=== PATIENT | female | born 1950 | race Caucasian/White ===

== ENCOUNTER 2018-05-12 11:57 | Emergency (ER) | payer OTHER ==
--- OUTSIDE RECORDS SUMMARY | 2018-05-12 12:00 | XMS REPORT | Clinical Summary ---
:1950 Author Organization [facility] Address [address] [place] [address] Care Team Providers Name Role Phone Pennie Raya CASEY SAW OPERATOR-C Primary Care Provider Allergies Active Allergy Reactions Severity Noted Date Comments Codeine 09/26/2016 Morphine 09/26/2016 Current Medications Prescription Sig. Disp. Refills Start Date End Date Status SYMBICORT 160-4.5 Inhale 2 3 08/15/2016 Active mcg/actuation inhaler puffs 2 (two) times a day. levothyroxine Take 100 mcg 09/13/2016 Active (SYNTHROID, LEVOXYL) by mouth 112 mcg tablet daily. fluticasone (FLONASE) 2 sprays by Active 50 mcg/actuation Each Nare nasal spray route daily. ALBUTEROL SULFATE Inhale. Active (PROAIR HFA INHL) DOCUSATE SODIUM Take by Active (COLACE ORAL) mouth. FEXOFENADINE HCL Take by mouth Active (MUCINEX ALLERGY as needed. ORAL) PLANT STANOL FLAKO Take by mouth Active (CHOLEST OFF ORAL) 2 (two) times a day. MAGNESIUM Take by Active OXIDE,ASPARTATE,CITR mouth. (TRIPLE MAGNESIUM COMPLEX ORAL) carica papaya (PAPAYA Take by Active ENZYME) tablet mouth. red yeast rice 600 mg Take by Active tablet mouth. propafenone (RYTHMOL) Take 1 tablet 270 tablet 3 01/02/2018 Active 225 MG (225 mg tabletIndications: total) by Atrial fibrillation, mouth 3 unspecified type (three) times a day. atenolol (TENORMIN) Take 1 tablet 90 tablet 3 05/07/2018 Active 50 MG (50 mg total) 9 tabletIndications: by mouth Atrial fibrillation, daily. unspecified type, Dizziness, Essential hypertension furosemide (LASIX) 40 Take 1 tablet 90 tablet 3 05/07/2018 Active mg tabletIndications: (40 mg total) Atrial fibrillation, by mouth unspecified type, daily. Dizziness, Essential hypertension losartan (COZAAR) 50 Take 1 tablet 90 tablet 3 05/07/2018 Active MG tabletIndications: (50 mg total) 9 Essential by mouth hypertension, Atrial daily. fibrillation, unspecified type, Dizziness XARELTO 10 mg Take 1 tablet 90 tablet 3 05/07/2018 Active tabletIndications: (10 mg total) Atrial fibrillation, by mouth unspecified type, daily. Dizziness, Essential hypertension amoxicillin-pot 09/12/2016 Discontinued clavulanate 8 (AUGMENTIN) 875-125 mg per tablet erythromycin 0.5% 08/29/2016 Discontinued (ILOTYCIN) 5 mg/gram 8 (0.5 %) ophthalmic ointment fluconazole 09/13/2016 Discontinued (DIFLUCAN) 150 MG 8 tablet diphenhydrAMINE Take 25 mg by Discontinued (BENADRYL) 25 mg mouth nightly 8 tablet as needed for sleep. propafenone (RYTHMOL) Take 1 tablet 270 tablet 3 02/13/2017 Discontinued 225 MG by mouth 3 7 tabletIndications: times daily Cardiomyopathy, Atrial fibrillation, unspecified type atenolol (TENORMIN) Take 1 tablet 90 tablet 3 03/26/2017 Discontinued 25 MG (25 mg total) 7 tabletIndications: by mouth Cardiomyopathy, daily. Atrial fibrillation, unspecified type losartan (COZAAR) 50 Take 1 tablet 90 tablet 3 04/03/2017 Discontinued MG tabletIndications: (50 mg total) 8 Essential by mouth hypertension, Atrial daily. fibrillation, unspecified type, Dizziness, Cardiomyopathy atenolol (TENORMIN) Take 1 tablet 90 tablet 3 04/03/2017 Discontinued 50 MG (50 mg total) 7 tabletIndications: by mouth Atrial fibrillation, daily. unspecified type, Dizziness, Essential hypertension, Cardiomyopathy furosemide (LASIX) 40 Take 1 tablet 90 tablet 3 04/03/2017 Discontinued mg tabletIndications: (40 mg total) 8 Cardiomyopathy, by mouth Atrial fibrillation, daily. unspecified type, Dizziness, Essential hypertension XARELTO 10 mg Take 1 tablet 90 tablet 3 04/03/2017 Discontinued tabletIndications: (10 mg total) 8 Cardiomyopathy, by mouth Atrial fibrillation, daily. unspecified type, Dizziness, Essential hypertension atenolol (TENORMIN) Take 1 tablet 90 tablet 3 05/28/2017 Discontinued 50 MG (50 mg total) 8 tabletIndications: by mouth Atrial fibrillation, daily. unspecified type, Dizziness, Essential hypertension, Cardiomyopathy propafenone (RYTHMOL) Take 1 tablet 270 tablet 3 05/28/2017 Discontinued 225 MG (225 mg 8 tabletIndications: total) by Cardiomyopathy, mouth 3 Atrial fibrillation, (three) times unspecified type a day. atenolol (TENORMIN) Take 1 tablet 90 tablet 0 05/30/2017 Discontinued 25 MG (25 mg total) 8 tabletIndications: by mouth Cardiomyopathy, daily. Atrial fibrillation, unspecified type atenolol (TENORMIN) Take 1 tablet 90 tablet 3 11/06/2017 Discontinued 50 MG (50 mg total) 8 tabletIndications: by mouth Atrial fibrillation, daily. unspecified type, Dizziness, Essential hypertension furosemide (LASIX) 40 Take 1 tablet 90 tablet 3 11/06/2017 Discontinued mg tabletIndications: (40 mg total) 8 Atrial fibrillation, by mouth unspecified type, daily. Dizziness, Essential hypertension losartan (COZAAR) 50 Take 1 tablet 90 tablet 3 11/06/2017 Discontinued MG tabletIndications: (50 mg total) 8 Essential by mouth hypertension, Atrial daily. fibrillation, unspecified type, Dizziness XARELTO 10 mg Take 1 tablet 90 tablet 3 11/06/2017 Discontinued tabletIndications: (10 mg total) 8 Atrial fibrillation, by mouth unspecified type, daily. Dizziness, Essential hypertension atenolol (TENORMIN) Take 1 tablet 90 tablet 3 11/06/2017 Discontinued 50 MG (50 mg total) 8 tabletIndications: by mouth Atrial fibrillation, daily. unspecified type, Dizziness, Essential hypertension furosemide (LASIX) 40 Take 1 tablet 90 tablet 3 11/06/2017 Discontinued mg tabletIndications: (40 mg total) 8 Atrial fibrillation, by mouth unspecified type, daily. Dizziness, Essential hypertension losartan (COZAAR) 50 Take 1 tablet 90 tablet 3 11/06/2017 Discontinued MG tabletIndications: (50 mg total) 8 Essential by mouth hypertension, Atrial daily. fibrillation, unspecified type, Dizziness XARELTO 10 mg Take 1 tablet 90 tablet 3 11/06/2017 Discontinued tabletIndications: (10 mg total) 8 Atrial fibrillation, by mouth unspecified type, daily. Dizziness, Essential hypertension furosemide (LASIX) 40 Take 1 tablet 90 tablet 3 11/21/2017 Discontinued mg tabletIndications: (40 mg total) 8 Atrial fibrillation, by mouth unspecified type, daily. Dizziness, Essential hypertension XARELTO 10 mg Take 1 tablet 90 tablet 3 11/21/2017 Discontinued tabletIndications: (10 mg total) 8 Atrial fibrillation, by mouth unspecified type, daily. Dizziness, Essential hypertension furosemide (LASIX) 40 Take 1 tablet 90 tablet 3 11/21/2017 Discontinued mg tabletIndications: (40 mg total) 8 Atrial fibrillation, by mouth unspecified type, daily. Dizziness, Essential hypertension XARELTO 10 mg Take 1 tablet 90 tablet 3 11/21/2017 Discontinued tabletIndications: (10 mg total) 8 Atrial fibrillation, by mouth unspecified type, daily. Dizziness, Essential hypertension atenolol (TENORMIN) Take 1 tablet 90 tablet 3 01/02/2018 Discontinued 50 MG (50 mg total) 8 tabletIndications: by mouth Atrial fibrillation, daily. unspecified type, Dizziness, Essential hypertension furosemide (LASIX) 40 Take 1 tablet 90 tablet 3 01/02/2018 Discontinued mg tabletIndications: (40 mg total) 8 Atrial fibrillation, by mouth unspecified type, daily. Dizziness, Essential hypertension losartan (COZAAR) 50 Take 1 tablet 90 tablet 3 01/02/2018 Discontinued MG tabletIndications: (50 mg total) 8 Essential by mouth hypertension, Atrial daily. fibrillation, unspecified type, Dizziness XARELTO 10 mg Take 1 tablet 90 tablet 3 01/02/2018 Discontinued tabletIndications: (10 mg total) 8 Atrial fibrillation, by mouth unspecified type, daily. Dizziness, Essential hypertension Active Problems Problem Noted Date Dizziness 04/03/2017 Cardiomyopathy 09/26/2016 Atrial fibrillation 09/26/2016 Abnormal EKG 09/26/2016 Encounters Date Type Specialty Care Team Description 05/07/2018 Office Visit Cardiology Daryl Chapman MD Atrial fibrillation , unspecified type (Primary Dx); Dizziness; Essential hypertension 05/07/2018 Refill Cardiology Jeannette Mazariegos Med Refill MA 01/02/2018 Refill Cardiology Daryl Chapman MD Med Refill 01/02/2018 Refill Cardiology Daryl Chapman MD Med Refill 11/21/2017 Orders Only Cardiology David Ellis MA Atrial fibrillation, unspecified type; Dizziness; Essential hypertension 11/21/2017 Orders Only Cardiology David Ellis MA Atrial fibrillation, unspecified type; Dizziness; Essential hypertension 11/06/2017 Office Visit Cardiology Daryl Chapman MD Atrial fibrillation , unspecified type (Primary Dx); Cardiomyopathy, unspecified type; Dizziness; Essential hypertension 05/30/2017 Refill Cardiology David Ellis MA Med Refill (atenolol) 05/28/2017 Refill Cardiology David Ellis MA Med Refill after 05/11/2017 Social History Tobacco Use Types Packs/Day Years Used Date Former Smoker Smokeless Tobacco: Never Used Alcohol Use Drinks/Week oz/Week Comments No Sex Assigned at Date Recorded Not on file Last Filed Vital Signs Vital Sign Reading Time Taken Blood Pressure 130/69 05/07/2018 3:09 PM CDT Pulse 90 11/06/2017 2:49 PM [employer] Temperature - - Respiratory Rate - - Oxygen Saturation - - Inhaled Oxygen Concentration - - Weight 104 kg (229 lb) 05/07/2018 3:09 PM CDT Height 170.2 cm (5' 7") 05/07/2018 3:09 PM CDT Body Mass Index 35.87 05/07/2018 3:09 PM CDT Plan of Treatment Date Type Specialty Care Team Description 11/12/2018 Office Visit Cardiology Daryl Chapman MD [address] [address] [phone] Health Maintenance Due Date Last Done Comments BREAST CANCER SCREENING 02/09/1998 COLON CANCER SCREENING 02/09/1998 SHINGRIX VACCINE (#1) 02/09/1998 ZOSTER VACCINE 2008 PNEUMOCOCCAL POLYSACCHARIDE VACCINE AGE 65 AND OVER 02/09/2013 PNEUMOCOCCAL-13 02/09/2013 INFLUENZA VACCINE 05/15/2018 Procedures Procedure Name Priority Date/Time Associated Comments Diagnosis ECG 12-LEAD Routine 05/07/2018 2:03 Atrial Results for this PM CDT fibrillation, procedure are in unspecified type the results section. ECHOCARDIOGRAM 2D Routine 02/13/2018 1:56 Results for this COMPLETE W MMODE PM CDT procedure are in SPECTRAL COLOR DOPPLER the results (86777) section. ECG 12-LEAD Routine 11/06/2017 2:55 Atrial Results for this PM [employer] fibrillation, procedure are in unspecified type the results Cardiomyopathy, section. unspecified type after 05/11/2017 Results ECG 12 lead (05/07/2018 2:03 PM)Only the most recent of2 resultswithin the time period is included. Ventricular rate 71 [facility] Atrial rate 78 [facility] QRSD interval 142 [facility] QT interval 426 [facility] QTC interval 462 [facility] QRS axis 1 52 [facility] T wave axis 110 [facility] EKG impression Atrial fibrillation-Left bundle branch [facility] block-Abnormal ECG-In automated comparison with ECG of 06-NOV-2017 14:55,-T wave inversion no longer evident in Inferior leads- Performing Organization Address City/State/Zipcode Phone Number [facility] [address] [place] [address] Echocardiogram complete w contrast and 3D if needed (02/13/2018 1:56 PM) Narrative Performed At [facility] Echocardiography Report Pat.Name:BRIONNA ORTEGA LPat.ID:[id number] .Date: 02/13/2018Refer.MD:DARYL CHAPMAN MD Exam Time: 2:18:00 PMStudy Type:Routine Echo Height:67inWeight: 229lb BSA: 2.14 m2 DOBAge:1950,68Y Sex: FEMALEBP:143/65 HR:90 bpmSonogrphr: Hayley Parr RDCS, RVT Pat. Stat.:OutpatientRoom:[facility] Study Status:Final Echo Event ID:[id number] Order ID:[id number] Reason for Study:Atrial fibrillation, Cardiomyopathy; initial evaluation known or suspected Procedures:2D Echo, Colorflow Doppler Race:C SUMMARY: LV EF is lower limits of normal at 50-54%. Normal RV function. Severe LA enlargement. Impaired LV relaxation with elevated LV filling pressure. Estimated PA systolic pressure is 40-45 mmHg, assuming RAP=5-10 mmHg. FINDINGS: LV: LV size is normal. There is moderate concentric LV hypertrophy.LV EF is lower limits of normal. Overall wall motionis lower limits of normal. Estimated EF is 50-54%. RV: RV size is normal. RV systolic function is normal. LA: LA volume is severely enlarged. RA: RA volume is enlarged. AO: Aortic root diameter is normal. BELTRAN: No pericardial effusion. IAS:Interatrial septum is thickened consistent with lipomatous hypertrophy. AV: Focal calcification of AV leaflets. MV: No structural MV abnormalities noted. Mild mitral regurgitation. PV: No structural PV abnormalities noted. A trace of pulmonic regurgitation. TV: No structural TV abnormalities noted. Mild tricuspid regurgitation Guillen: LV relaxation is impaired. LV filling pressure is elevated. Other:Estimated PA systolic pressure is 40-45 mmHg, assuming a meanRAP of 5-10 mmHg. MEASUREMENTS: 2D Parasternal Long [place] LVIDd4.9 cmIndex2.3 cm/m LA Ds6 cm LVIDs3.4 cmAo Rtd 2.7 cm Index1.3 cm/m LV%fs 31.7 % LV Hypk611.5 g(87-129) IVSd 1 cmLVM Mpbhy241 g/m2 LVPWd1.3 cmRWT0.5 LA Sng Plane LA Area 32 cm2(8.8-23.4) LA Vol 130 ml Index60.8 ml/m LA LngAx 6.6 cm Signed 02/13/2018 11:33 PM Denver Dang M.D. Procedure Note Interface, Radiology Results In - 02/13/2018 11:33 PM CDT [facility] Echocardiography Report Pat.Name: BRIONNA ORTEGA Pat.ID: [id number] .Date: 02/13/2018 Refer.MD: DARYL CHAPMAN MD Exam Time: 2:18:00 PM Study Type:Routine Echo Height: 67in Weight: 229lb BSA: 2.14 m2 Age: 4 1950,68Y Sex: FEMALE BP: 143/65 HR: 90 bpm Sonogrphr: Hayley Parr RDCS, RVT Pat. Stat.:Outpatient Room: [facility] Study Status:Final Echo Event ID:[id number] Order ID: [id number] Reason for Study:Atrial fibrillation, Cardiomyopathy; initial evaluation known or suspected Procedures:2D Echo, Colorflow Doppler Race: C SUMMARY: LV EF is lower limits of normal at 50-54%. Normal RV function. Severe LA enlargement. Impaired LV relaxation with elevated LV filling pressure. Estimated PA systolic pressure is 40-45 mmHg, assuming RAP=5-10 mmHg. FINDINGS: LV: LV size is normal. There is moderate concentric LV hypertrophy. LV EF is lower limits of normal. Overall wall motion is lower limits of normal. Estimated EF is 50-54%. RV: RV size is normal. RV systolic function is normal. LA: LA volume is severely enlarged. RA: RA volume is enlarged. AO: Aortic root diameter is normal. BELTRAN: No pericardial effusion. IAS: Interatrial septum is thickened consistent with lipomatous hypertrophy. AV: Focal calcification of AV leaflets. MV: No structural MV abnormalities noted. Mild mitral regurgitation. PV: No structural PV abnormalities noted. A trace of pulmonic regurgitation. TV: No structural TV abnormalities noted. Mild tricuspid regurgitation Guillen: LV relaxation is impaired. LV filling pressure is elevated. Other: Estimated PA systolic pressure is 40-45 mmHg, assuming a mean RAP of 5-10 mmHg. MEASUREMENTS: 2D Parasternal Long [place] LVIDd 4.9 cm Index 2.3 cm/m LA Ds 6 cm LVIDs 3.4 cm Ao Rtd 2.7 cm Index 1.3 cm/m LV%fs 31.7 % LV Mass 220.5 g (87-129) IVSd 1 cm LVM Index 103 g/m2 LVPWd 1.3 cm RWT 0.5 LA Sng Plane LA Area 32 cm2 (8.8-23.4) LA Vol 130 ml Index 60.8 ml/m LA LngAx 6.6 cm Signed 02/13/2018 11:33 PM Denver Dang M.D. Performing Organization Address City/State/Zipcode Phone Number [facility] [address] [place] [address] after 05/11/2017 Insurance Payer Benefit Plan / Group Subscriber ID Type Phone Address MEDICARE MEDICARE PART A AND B xxxxxxxxxx Medicare [place], [place] AFLAC AFLAC xxxxxxxx Commercial Home: [address] [place], [place] [phone] [place] [address]
[2018-05-12] MEDS ORDERED: LORAZEPAM 0.5 MG TABLET ONE (13:37)
[2018-05-12] MEDS ORDERED: DICYCLOMINE HCL 10 MG CAP ONE (13:37)
--- NOTE | 2018-05-12 14:54 | ER ---
Nurse's Notes [facility] Name: Brionna Mendoza Age: 68 yrs Sex: Female : 1950 Arrival Date: 05/12/2018 Time: 11:59 Bed 20 Private MD: Pennie Raya Diagnosis: Anxiety disorder, unspecified;Situational type phobia;Insomnia, unspecified Presentation: 05/12 12:08 Presenting complaint: Patient states: Unable to sleep for 1 week increased anxiety. aj Also reports "gas pains" in generalized abdomen. Transition of care: patient was not received from another setting of care. Onset of symptoms was May 05, 2018. Risk Assessment: Do you want to hurt yourself or someone else? Patient reports no desire to harm self or others. Initial Sepsis Screen: Does the patient meet any 2 criteria? No. Patient's initial sepsis screen is negative. Does the patient have a suspected source of infection? No. Patient's initial sepsis screen is negative. Care prior to arrival: None. 12:08 Method Of Arrival: Ambulatory aj 12:08 Acuity: JORDI 3 aj Triage Assessment: 12:12 General: Appears in no apparent distress. uncomfortable, Behavior is calm, cooperative, aj appropriate for age. Pain: Complains of pain in abdomen. Neuro: Level of Consciousness is awake, alert, obeys commands, Oriented to person, place, time, situation, Appropriate for age. Respiratory: Airway is patent Respiratory effort is even, unlabored, Respiratory pattern is regular, symmetrical. GI: Reports cramping, gaseousness. Derm: Skin is intact, is healthy with good turgor, Skin is pink, warm \\T\\ dry. normal. Historical: - Allergies: 12:12 Morphine; aj - Home Meds: 12:12 levothyroxine 100 mcg oral tab [Active]; montelukast 10 mg oral tab 1 tab once daily aj [Active]; Zoloft 25 mg Oral tab 1 tab once daily [Active]; trazodone 50 mg Oral tab nightly [Active]; atenolol 50 mg Oral tab 1 tab once daily [Active]; furosemide 40 mg Oral tab 1 tab once daily [Active]; Xarelto 10 mg Oral tab 1 tab once daily [Active]; Symbicort 160-4.5 mcg/actuation inhalation HFAA 2 puffs 2 times per day [Active]; fluticasone 50 mcg/actuation nasal spsn 2 sprays once daily [Active]; ProAir HFA 90 mcg/actuation inhalation HFAA 2 puffs every 4-6 hours [Active]; Lara 60 mg Oral tab 1 tab 2 times per day [Active]; Colace 50 mg Oral cap [Active]; losartan 50 mg oral tab 1 tab once daily [Active]; - PMHx: 12:12 Atrial Fib; breast cancer; Hypertension; Hypothyroidism; menieres disease; Sleep Apnea; aj - PSHx: 12:12 Carpal Tunnel Repair; aj - Immunization history:: Adult Immunizations up to date. - Social history:: Smoking status: Patient/guardian denies using tobacco. - Ebola Screening: : Patient negative for fever greater than or equal to 101.5 degrees Fahrenheit, and additional compatible Ebola Virus Disease symptoms Patient denies exposure to infectious person Patient denies travel to an Ebola-affected area in the 21 days before illness onset No symptoms or risks identified at this time. Screenin:03 Abuse screen: Denies threats or abuse. Nutritional screening: No deficits noted. em Tuberculosis screening: No symptoms or risk factors identified. Fall Risk None identified. Assessment: 13:18 General: Appears in no apparent distress. uncomfortable, Behavior is calm, cooperative, em appropriate for age, Reports reports unable to sleep and feeling anxious for past few days to a week now, denies SOB, chest pain, N/V. also c/o "hunger pains" and feeling bloated and passing gas. Pain: Denies pain. Neuro: Level of Consciousness is awake, alert, obeys commands, Oriented to person, place, time, situation. Cardiovascular: Denies chest pain, Respiratory: Airway is patent Respiratory effort is even, unlabored, Respiratory pattern is regular, symmetrical, Breath sounds are clear bilaterally. GI: Abdomen is round non-distended, Bowel sounds present X 4 quads. Abd is soft and non tender X 4 quads. Patient currently denies. : Urine is clear. EENT: No signs and/or symptoms were reported regarding the EENT system. Derm: Skin is intact, Skin is pink, warm \\T\\ dry. Musculoskeletal: Range of motion: intact in all extremities. 13:20 General: the previous assessment is accurate. Call light remains within reach. . ss 14:00 Reassessment: Patient appears in no apparent distress at this time. Patient and/or em family updated on plan of care and expected duration. Pain level reassessed. Patient is alert, oriented x 3, equal unlabored respirations, skin warm/dry/pink. warm blanket given, anxiety has decreased. 15:48 Reassessment: Patient appears in no apparent distress at this time. Patient and/or em family updated on plan of care and expected duration. Pain level reassessed. Patient is alert, oriented x 3, equal unlabored respirations, skin warm/dry/pink. Patient states feeling better. Patient states symptoms have improved. Vital Signs: 12:12 BP 154 / 75; Pulse 73; Resp 18; Temp 97.2; Pulse Ox 96% on R/A; Weight 96.16 kg; Height aj 5 ft. 6 in. (167.64 cm); 13:15 BP 135 / 55; Pulse 64; Resp 18; Pulse Ox 100% on R/A; Pain 0/10; em 14:00 BP 140 / 64; Pulse 63; Resp 16; Pulse Ox 99% on R/A; em 15:00 BP 154 / 67; Pulse 65; Resp 18; Pulse Ox 99% on R/A; Pain 0/10; em 12:12 Body Mass Index 34.22 (96.16 kg, 167.64 cm) ED Course: 11:59 Patient arrived in ED. as 11:59 Pennie Raya is Private Physician. as 12:09 Triage completed. aj 12:12 Arm band placed on right wrist. Patient placed in waiting room, Patient notified of wait time. 13:02 Edie Anne FNP-C is PHCP. snw 13:02 Rob Granados MD is Attending Physician. snw 13:10 Espinoza Walker LVN is Primary Nurse. em 13:15 Patient has correct armband on for positive identification. Placed in gown. Bed in low em position. Call light in reach. Side rails up X2. Adult w/ patient. 14:36 Urine Culture Sent. ag 14:36 Urine Microscopic Only Sent. ag 14:53 Pennie Raya is Referral Physician. snw 15:47 No provider procedures requiring assistance completed. Patient did not have IV access em during this emergency room visit. Administered Medications: 13:40 Drug: Ativan 0.5 mg Route: PO; em 15:45 Follow up: Response: No adverse reaction; Anxiety decreased em 13:40 Drug: Bentyl 20 mg Route: PO; em 15:45 Follow up: Response: No adverse reaction; Pain is decreased em Outcome: 14:54 Discharge ordered by . snw 15:47 Discharged to home ambulatory, with family. em 15:47 Condition: good 15:47 Discharge instructions given to patient, family, Instructed on discharge instructions, follow up and referral plans. Demonstrated understanding of instructions, follow-up care. 15:48 Patient left the ED. em Signatures: Kadie Otto RN RN Eide Angel, GALLEY COOK-C GALLEY COOK-Taew Espinoza Walker, JONEL BENITEZN em Linda Deluna Shelby, RN RN Carito Watson Corrections: (The following items were deleted from the chart) 12:13 12:12 Arm band placed on right wrist. Patient placed in an exam room, darwin granados
--- NOTE | 2018-05-12 14:54 | EDPHYS ---
Physician Documentation [facility] Name: Brionna Mendoza Age: 68 yrs Sex: Female : 1950 Arrival Date: 05/12/2018 Time: 11:59 Bed 20 Private MD: Pennie Raya ED Physician Rob Granados HPI: 05/12 15:53 This 68 yrs old Female presents to ER via Ambulatory with complaints of snw Anxiety, Abdominal Pain, Unable to sleep. Historical: - Allergies: 12:12 Morphine; aj - Home Meds: 12:12 levothyroxine 100 mcg oral tab [Active]; montelukast 10 mg oral tab 1 tab once daily aj [Active]; Zoloft 25 mg Oral tab 1 tab once daily [Active]; trazodone 50 mg Oral tab nightly [Active]; atenolol 50 mg Oral tab 1 tab once daily [Active]; furosemide 40 mg Oral tab 1 tab once daily [Active]; Xarelto 10 mg Oral tab 1 tab once daily [Active]; Symbicort 160-4.5 mcg/actuation inhalation HFAA 2 puffs 2 times per day [Active]; fluticasone 50 mcg/actuation nasal spsn 2 sprays once daily [Active]; ProAir HFA 90 mcg/actuation inhalation HFAA 2 puffs every 4-6 hours [Active]; Lara 60 mg Oral tab 1 tab 2 times per day [Active]; Colace 50 mg Oral cap [Active]; losartan 50 mg oral tab 1 tab once daily [Active]; - PMHx: 12:12 Atrial Fib; breast cancer; Hypertension; Hypothyroidism; menieres disease; Sleep Apnea; aj - PSHx: 12:12 Carpal Tunnel Repair; aj - Immunization history:: Adult Immunizations up to date. - Social history:: Smoking status: Patient/guardian denies using tobacco. - Ebola Screening: : Patient negative for fever greater than or equal to 101.5 degrees Fahrenheit, and additional compatible Ebola Virus Disease symptoms Patient denies exposure to infectious person Patient denies travel to an Ebola-affected area in the 21 days before illness onset No symptoms or risks identified at this time. ROS: 15:45 Eyes: Negative for injury, pain, redness, and discharge, ENT: Negative for injury, snw pain, and discharge, Neck: Negative for injury, pain, and swelling, Cardiovascular: Negative for chest pain, palpitations, and edema, Respiratory: Negative for shortness of breath, cough, wheezing, and pleuritic chest pain, Back: Negative for injury and pain, : Negative for injury, bleeding, discharge, and swelling, MS/Extremity: Negative for injury and deformity, Skin: Negative for injury, rash, and discoloration, Neuro: Negative for headache, weakness, numbness, tingling, and seizure. 15:45 Constitutional: Positive for fatigue, malaise, insomnia. 15:45 Abdomen/GI: Positive for anorexia, knotting in abdomen post eating. Exam: 15:45 Head/Face: Normocephalic, atraumatic. snw 15:45 ENT: Nares patent. No nasal discharge, no septal abnormalities noted. Tympanic membranes are normal and external auditory canals are clear. Oropharynx with no redness, swelling, or masses, exudates, or evidence of obstruction, uvula midline. Mucous membranes moist. Neck: Trachea midline, no thyromegaly or masses palpated, and no cervical lymphadenopathy. Supple, full range of motion without nuchal rigidity, or vertebral point tenderness. No Meningismus. Chest/axilla: Normal chest wall appearance and motion. Nontender with no deformity. No lesions are appreciated. Cardiovascular: Regular rate and rhythm with a normal S1 and S2. No gallops, murmurs, or rubs. Normal PMI, no JVD. No pulse deficits. Respiratory: Lungs have equal breath sounds bilaterally, clear to auscultation and percussion. No rales, rhonchi or wheezes noted. No increased work of breathing, no retractions or nasal flaring. Abdomen/GI: Soft, non-tender, with normal bowel sounds. No distension or tympany. No guarding or rebound. No evidence of tenderness throughout. Back: No spinal tenderness. No costovertebral tenderness. Full range of motion. Skin: Warm, dry with normal turgor. Normal color with no rashes, no lesions, and no evidence of cellulitis. MS/ Extremity: Pulses equal, no cyanosis. Neurovascular intact. Full, normal range of motion. Neuro: Awake and alert, GCS 15, oriented to person, place, time, and situation. Cranial nerves II-XII grossly intact. Motor strength 5/5 in all extremities. Sensory grossly intact. Cerebellar exam normal. Normal gait. 15:45 Constitutional: The patient appears alert, awake, anxious. 15:45 Eyes: Periorbital structures: exopthalmus (PCP adjusting thyroid medications). 15:45 Psych: Behavior/mood is cooperative, anxious, depressed, sad. Affect is flat, Oriented to person, place, time, Patient has no thoughts/intents to harm self or others. Vital Signs: 12:12 BP 154 / 75; Pulse 73; Resp 18; Temp 97.2; Pulse Ox 96% on R/A; Weight 96.16 kg; Height aj 5 ft. 6 in. (167.64 cm); 13:15 BP 135 / 55; Pulse 64; Resp 18; Pulse Ox 100% on R/A; Pain 0/10; em 14:00 BP 140 / 64; Pulse 63; Resp 16; Pulse Ox 99% on R/A; em 15:00 BP 154 / 67; Pulse 65; Resp 18; Pulse Ox 99% on R/A; Pain 0/10; em 12:12 Body Mass Index 34.22 (96.16 kg, 167.64 cm) aj MDM: 13:02 Patient medically screened. w 05/12 14:33 Order name: Urine Culture 05/12 14:33 Order name: Urine Microscopic Only; Complete Time: 15:17 w 05/12 13:03 Order name: EKG; Complete Time: 13:04 w 05/12 14:46 Order name: Urine Dipstick--Ancillary (enter results); Complete Time: 15:17 05/12 13:03 Order name: EKG - Nurse/Tech; Complete Time: 14:07 [facility] 05/12 14:33 Order name: Urine Dipstick-Ancillary (obtain specimen); Complete Time: 14:36 snw Administered Medications: 13:40 Drug: Ativan 0.5 mg Route: PO; em 15:45 Follow up: Response: No adverse reaction; Anxiety decreased em 13:40 Drug: Bentyl 20 mg Route: PO; em 15:45 Follow up: Response: No adverse reaction; Pain is decreased em Disposition: 16:18 Co-signature as Attending Physician, Rob Granados MD I agree with the assessment and kdr plan of care. Disposition: 05/12/18 14:54 Discharged to Home. Impression: Anxiety disorder, unspecified, Situational type phobia, Insomnia, unspecified. - Condition is Stable. - Discharge Instructions: Insomnia, Generalized Anxiety Disorder. - Medication Reconciliation Form, Thank You Letter, Antibiotic Education, Prescription Opioid Use form. - Follow up: Pennie Raya; When: 2 - 3 days; Reason: Recheck today's complaints, Continuance of care, Re-evaluation by your physician. Follow up: Emergency Department; When: As needed; Reason: Worsening of condition. - Notes: Zoloft at night. No benadryl, melatonin, or coricidin Signatures: Dispatcher [employer] EDKadie Goldman RN RN aj Rittger, Kevin, MD MD kdr Therrien, Shelly, CLIENT MANAGER [employer]-C CLIENT MANAGER [employer]-Csnw Espinoza Walker, TRUCKER TRUCKER em Corrections: (The following items were deleted from the chart) 15:48 14:54 05/12/2018 14:54 Discharged to Home. Impression: Anxiety disorder, unspecified; em Situational type phobia; Insomnia, unspecified. Condition is Stable. Forms are Medication Reconciliation Form, Thank You Letter, Antibiotic Education, Prescription Opioid Use. Follow up: Pennie Raya; When: 2 - 3 days; Reason: Recheck today's complaints, Continuance of care, Re-evaluation by your physician. Follow up: Emergency Department; When: As needed; Reason: Worsening of condition. snw
[2018-05-12 15:09] LABS: Urine Bacteria NONE SEEN /HPF (<20); Urine Culture Reflex Order NOT NEEDED; Urine RBC <5 /HPF (NONE SEEN)
[2018-05-12 15:10] LABS: Urine Blood TRACE (NEG); Urine Glucose NEGATIVE (NEG); Urine Protein NEGATIVE (NEG)
--- NOTE | 2018-05-12 19:56 | EKG ---
Test Date: 2018-05-12 Test Time: 14:00:24 Systems Engineer: JESSICA MEASUREMENT RESULTS: Intervals: Rate: 64 HI: QRSD: 140 QT: 448 QTc: 462 [place]: P: HI: QRS: -16 T: 88 INTERPRETIVE STATEMENTS: Atrial fibrillation with premature ventricular or aberrantly conducted complexes Left bundle branch block Abnormal ECG Compared to ECG 09/05/2016 16:01:47 Ventricular premature complex(es) now present Electronically Signed On 05-12-18 19:55:55 CDT by Jakob Isaac
== END 2018-05-12 15:48 | disposition home or self-care (01) ==
LOC: ER 11:57
DX: G47.00 Insomnia, unspecified (principal); F40.248 Other situational type phobia; I10 Essential (primary) hypertension; E03.9 Hypothyroidism, unspecified; I48.91 Unspecified atrial fibrillation; Z85.3 Personal history of malignant neoplasm of breast; Z88.5 Allergy status to narcotic agent
CPT/HCPCS: 81003; 81015; 87086; 87088; 93005; 99283